=== PATIENT | male | born 1980 | race Caucasian/White ===

== ENCOUNTER 2017-12-29 22:24 | Emergency (ER) | payer OTHER ==
[~2017-12-29] VITALS: Ht 183.5 cm; Wt 108.9 kg
[2017-12-29 22:58] VITALS: BP 121/78
[2017-12-29 23:20] VITALS: BP 121/78
--- NOTE | 2017-12-30 01:50 | Emergency Room Report ---
History of Present Illness General Chief Complaint: Upper Extremity Injury Source: Patient Present Illness HPI 37-year-old male with left shoulder pain, states that he did something with the shoulder while he was at work back in May, has already seen doctors, had an MRI that showed that he may have tendinitis and a partial tear. States that his pain is okay right now Allergies: Coded Allergies: No Known Allergies (Unverified , 12/29/17) Patient History Past Medical History: see triage record Past Surgical History: none Pertinent Family History: none Reviewed Nursing Documentation: PMH: Agreed; PSxH: Agreed Nursing Documentation-PMH Past Medical History: No Stated History Review of Systems All Other Systems: negative except mentioned in HPI Physical Exam Vital Signs Date Time Temp Pulse Resp B/P (MAP) Pulse Ox O2 Delivery O2 Flow Rate FiO2 12/29/17 22:36 98.3 75 16 121/78 96 Room Air 98.2 Sp02 EP Interpretation: reviewed, normal General Appearance: normal inspection, well appearing, no apparent distress, alert, GCS 15, non-toxic Head: normocephalic, atraumatic Eyes: bilateral eye normal inspection, bilateral eye PERRL, bilateral eye EOMI ENT: normal ENT inspection, normal pharynx, normal voice, moist mucus membranes Neck: normal inspection, full range of motion, supple Respiratory: normal inspection, lungs clear, normal breath sounds, no respiratory distress, no retraction, no wheezing, speaking full sentences, chest symmetrical Cardiovascular #1: normal inspection, regular rate, rhythm, no edema, normal capillary refill Cardiovascular #2: 2+ radial (R), 2+ radial (L) Gastrointestinal: normal inspection, non tender, soft, non-distended, no guarding Genitourinary: no CVA tenderness Musculoskeletal: normal inspection, back normal, normal range of motion, non- tender Neurologic: normal inspection, alert, oriented x3, responsive, motor strength/ tone normal, sensory intact, normal gait, speech normal Psychiatric: normal inspection, judgement/insight normal, memory normal Skin: normal inspection, normal color, no rash, warm/dry, well hydrated, normal turgor Medical Decision Making Diagnostic Impression: Primary Impression: Chronic left shoulder pain ER Course 37-year-old male with chronic left shoulder pain DDX: Already has an MRI that showed tendinitis versus partial ligamentous tear Plan: None ER course: Patient has been stable, offered pain medication but he refused Disposition: Patient is to be discharged home to follow up with orthopedic surgery in 1 week. Please note that this Emergency Department Report was dictated using [employer] technology software, occasionally this can lead to erroneous entry secondary to interpretation by the dictation equipment. Last Vital Signs Date Time Temp Pulse Resp B/P (MAP) Pulse Ox O2 Delivery O2 Flow Rate FiO2 12/29/17 23:20 98.2 70 16 121/78 96 Room Air 98.2 Disposition: HOME, SELF-CARE Condition: Stable Patient Instructions: Shoulder Pain, Ayte-[id number] Dio Sawant M.D. Dec 30, 2017 01:50
== END 2017-12-29 23:20 | disposition home or self-care (01) ==
LOC: EMR 22:59
DX: M25.512 Pain in left shoulder (principal); G89.29 Other chronic pain
CPT/HCPCS: 99282